=== PATIENT | female | born 1985 | race Caucasian/White ===

== ENCOUNTER 2020-12-31 09:26 | Day surgery (SDC) | payer BC ==
[2020-12-30 16:40] LABS: BLOOD UREA NITROGEN,BUN 19 mg/dL (7.0-18.0); CARBON DIOXIDE,CO2 25.1 mmol/L (21.0-32.0); CHLORIDE,CL 102 mmol/L (98-107); GLUCOSE RANDOM 86 mg/dL (74-106); SODIUM,NA 137 mmol/L (136-145)
[2020-12-31] MEDS ORDERED: HYDROmorphone 1 MG/ML Syringe IVPUSH PRN (10:34)
[2020-12-31] MEDS ORDERED: Morphine 2 MG/ML SYRINGE IVPUSH PRN (10:34)
[2020-12-31] MEDS ORDERED: Metoclopramide 10 MG/2 ML SDV IVPUSH PRN (10:34)
[2020-12-31] MEDS ORDERED: Naloxone 0.4 MG/ML Syringe IVPUSH PRN (10:34)
[2020-12-31] MEDS ORDERED: Ondansetron 4 MG/2 ML SDV IVPUSH PRN ×2 (10:34→13:41)
[2020-12-31] MEDS ORDERED: Albuterol 0.083% 2.5 MG/3 ML Neb Soln NEB PRN (10:34)
[2020-12-31] MEDS ORDERED: fentaNYL 100 MCG/2 ML SDV IVPUSH PRN (10:34)
--- NOTE | 2020-12-31 10:34 | PCM.PREANE ---
Preanesthetic Assessment - Procedure Proposed Procedure: [facility] - Anesthesia/Transfusion/Family Hx Anesthesia History: Prior Anesthesia Without Reaction Family History of Anesthesia Reaction: No Transfusion History: No Prior Transfusion(s) - Review of Systems General: No Symptoms Pulmonary: No Symptoms (social smoker (a few times a year)) Cardiovascular: No Symptoms Gastrointestinal: No Symptoms Neurological: No Symptoms Other: Reports: None - Physical Assessment NPO Status Date: 12/30/20 NPO Status Time: 19:00 Vital Signs: Last Vital Signs Temp 97.2 F 12/31/20 09:54 Pulse 67 12/31/20 09:54 Resp 16 12/31/20 09:54 BP 140/92 H 12/31/20 09:54 Pulse Ox 99 12/31/20 09:54 Height: 5 ft 6 in Weight: 87.997 kg (Obese) ASA Class: 2 Mental Status: Alert & Oriented x3 Airway Class: Mallampati = 2 Dentition: Reports: Normal Dentition ROM/Head Extension: Full Lungs: Clear to Auscultation, Normal Respiratory Effort Cardiovascular: Regular Rate, Regular Rhythm - Lab Values: Laboratory Last Values WBC 7.57 K/uL (4.0-11.0) 12/30/20 16:13 RBC 4.22 M/uL (4.30-5.90) L 12/30/20 16:13 Hgb 12.7 g/dL (12.0-16.0) 12/30/20 16:13 Hct 38.6 % (36.0-46.0) 12/30/20 16:13 MCV 91.5 fL (80.0-98.0) 12/30/20 16:13 MCH 30.1 pg (27.0-32.0) 12/30/20 16:13 MCHC 32.9 g/dL (31.0-37.0) 12/30/20 16:13 RDW Std Deviation 45.7 fl (28.0-62.0) 12/30/20 16:13 RDW Coeff of Elizabet 14 % (11.0-15.0) 12/30/20 16:13 Plt Count 280 K/uL (150-400) 12/30/20 16:13 MPV 10.60 fL (7.40-12.00) 12/30/20 16:13 Nucleated RBC % 0.0 /100WBC 12/30/20 16:13 Nucleated RBCs # 0 K/uL 12/30/20 16:13 Sodium 137 mmol/L (136-145) 12/30/20 16:13 Potassium 4.0 mmol/L (3.5-5.1) 12/30/20 16:13 Chloride 102 mmol/L (98-107) 12/30/20 16:13 Carbon Dioxide 25.1 mmol/L (21.0-32.0) 12/30/20 16:13 BUN 19 mg/dL (7.0-18.0) H 12/30/20 16:13 Creatinine 0.6 mg/dL (0.6-1.0) 12/30/20 16:13 Est Cr Clr Drug Dosing 121.35 mL/min 12/30/20 16:13 Estimated GFR (MDRD) > 60.0 ml/min 12/30/20 16:13 Glucose 86 mg/dL (74-106) 12/30/20 16:13 Calcium 8.8 mg/dL (8.5-10.1) 12/30/20 16:13 HCG, Qual NEGATIVE (NEG) 12/30/20 16:13 Blood Type A POSITIVE 12/30/20 16:13 Antibody Screen NEGATIVE 12/30/20 16:13 - Allergies Allergies/Adverse Reactions: Allergies Allergy/AdvReac Type Severity Reaction Status Date / Time No Known Allergies Allergy Verified 12/31/20 09:58 - Acknowledgements Anesthesia Type Planned: General Anesthesia Pt an Appropriate Candidate for the Planned Anesthesia: Yes Alternatives and Risks of Anesthesia Discussed w Pt/Guardian: Yes Pt/Guardian Understands and Agrees with Anesthesia Plan: Yes PreAnesthesia Questionnaire HEENT History: Reports: None Cardiovascular History: Reports: Other (See Below) Other Cardiovascular History: murmur in the past, HTN after first child was born, no problems since Respiratory History: Reports: None Gastrointestinal History: Reports: None Genitourinary History: Reports: None HOUSEPERSON History: Reports: Musculoskeletal History: Reports: Fracture Other Musculoskeletal History: hx enrique ankle fx's Neurological History: Reports: None Psychiatric History: Reports: None Endocrine/Metabolic History: Reports: Diabetes, Gestational, Obesity/BMI 30+ Hematologic History: Reports: None Immunologic History: Reports: None Oncologic (Cancer) History: Reports: None Dermatologic History: Reports: None - Infectious Disease History Infectious Disease History: Reports: Chicken Pox - Past Surgical History Head Surgeries/Procedures: Reports: None HEENT Surgical History: Reports: None Cardiovascular Surgical History: Reports: None Respiratory Surgical History: Reports: None GI Surgical History: Reports: None Female Surgical History: Reports: Other (See Below) Other Female Surgeries/Procedures: laparoscopy for ovarian cyst Endocrine Surgical History: Reports: None Neurological Surgical History: Reports: None Musculoskeletal Surgical History: Reports: Other (See Below) Other Musculoskeletal Surgeries/Procedures:: right knee surgery, left foot surgery for removal of bone chip Oncologic Surgical History: Reports: None Dermatological Surgical History: Reports: None - SUBSTANCE USE Tobacco Use Status *Q: Former Tobacco User Tobacco Use Within Last Twelve Months: No - HOME MEDS Home Medications: Home Meds Multivitamin 1 tab PO DAILY 12/26/20 [History]
[2020-12-31] MEDS ORDERED: Bupivacaine 0.5% 30 ML SDV ONE (11:02)
[2020-12-31] MEDS ORDERED: Methylene Blue 50 MG/10 ML Ampule ONE (11:56)
[2020-12-31] MEDS ORDERED: fentaNYL 250 MCG/5 ML SDV ONE ×2 (12:12→12:44)
[2020-12-31] MEDS ORDERED: fentaNYL 100 MCG/2 ML SDV ONE (12:42)
[2020-12-31] MEDS ORDERED: Propofol 200 MG/20 ML SDV ONE (12:44)
[2020-12-31] MEDS ORDERED: Ondansetron 4 MG/2 ML SDV ONE (12:45)
[2020-12-31] MEDS ORDERED: Rocuronium Bromide 50 MG/5 ML Syringe ONE (12:45)
[2020-12-31] MEDS ORDERED: Dexamethasone 4 MG/ML 5 ML MDV ONE (12:45)
[2020-12-31] MEDS ORDERED: Fluorescein 5 ML Vial ONE (13:06)
[2020-12-31] MEDS ORDERED: Promethazine 25 MG/ML SDV IM PRN (13:41)
[2020-12-31] MEDS ORDERED: Acetaminophen/oxyCODONE 325-5 MG Tab PO PRN (13:41)
[2020-12-31] MEDS ORDERED: Morphine 4 MG/ML Syringe IVPUSH PRN (13:41)
[2020-12-31] MEDS ORDERED: Ketorolac 30 MG/ML SDV IVPUSH ONE (13:41)
[2020-12-31] MEDS ORDERED: HYDROmorphone 2 MG/ML Syringe ONE (13:47)
[2020-12-31] MEDS ORDERED: Sugammadex Sodium 200 MG/2 ML VIAL ONE (13:56)
--- NOTE | 2020-12-31 14:05 | PCM.OPNOTE ---
- General Post-Op/Procedure Note Date of Surgery/Procedure: 12/31/20 Operative Procedure(s): Laparoscopic assisted vaginal hysterectomy with cystometry Findings: Uterus with multiple, small, subserosal fibroids present. Normal appearing ovaries and fallopian tubes. Stage 2 endometriosis near uterosacral ligament. Bilateral ureters demonstrated good flow on cystometry Pre Op Diagnosis: Menorrhagia, fibroid Post-Op Diagnosis: Same with stage 2 endometriosis Anesthesia Technique: General ET Tube Primary Surgeon: Bindu Gao Secondary Surgeon: Estiven Mark Anesthesia Provider: Mj Vazquez Newspaper Copy Editor: Zofia Vargas Pathology: Uterus, cervix, bilateral fallopian tubes Fluid Replacement, Intraop: 2,800 Output, Urine Amount: 300 EBL in mLs: 400 Complications: None Condition: Stable Free Text/Narrative:: 2g IV Ancef received
--- NOTE | 2020-12-31 14:07 | PCM.POSTAN ---
POST ANESTHESIA ASSESSMENT - MENTAL STATUS Mental Status: Oriented - VITAL SIGNS Vital Signs: Last Vital Signs Temp 97.5 F 12/31/20 13:49 Pulse 50 L 12/31/20 13:59 Resp 10 L 12/31/20 13:59 BP 108/72 12/31/20 13:59 Pulse Ox 100 12/31/20 13:59 - RESPIRATORY Respiratory Status: Respiratory Rate WNL, Airway Patent, O2 Saturation Stable - CARDIOVASCULAR CV Status: Pulse Rate WNL, Blood Pressure Stable - GASTROINTESTINAL GI Status: No Symptoms - PAIN Pain Score: 5 - POST OP HYDRATION Hydration Status: Adequate & Stable
--- NOTE | 2020-12-31 14:19 | PCM48HPAN ---
Post Anesthesia Note - EVALUATION WITHIN 48HRS OF ANESTHETIC Vital Signs in Normal Range: Yes Patient Participated in Evaluation: Yes Respiratory Function Stable: Yes Airway Patent: Yes Cardiovascular Function Stable: Yes Hydration Status Stable: Yes Pain Control Satisfactory: Yes Nausea and Vomiting Control Satisfactory: Yes Mental Status Recovered: Yes Vital Signs: Last Vital Signs Temp 97.5 F 12/31/20 13:49 Pulse 53 L 12/31/20 14:15 Resp 14 12/31/20 14:15 BP 100/59 L 12/31/20 14:15 Pulse Ox 99 12/31/20 14:15 - COMMENTS/OBSERVATIONS Free Text/Narrative:: Pt doing well post-op. VSS. No apparent anesthetic complications. Dr. Pipo Robert
[2020-12-31] MEDS: Ketorolac 30 MG/ML SDV IVPUSH SCH ×2 (16:04→20:02)
--- NOTE | 2020-12-31 19:52 | OR ---
SURGEON: Bindu Gao M.D. DATE OF PROCEDURE: 12/31/2020 PREOPERATIVE DIAGNOSES: Menorrhagia, uterine fibroid. POSTOPERATIVE DIAGNOSES: Menorrhagia, uterine fibroid, and stage II endometriosis. PROCEDURE: Laparoscopically assisted vaginal hysterectomy with bilateral salpingectomy and cystoscopy. PRIMARY SURGEON: Bindu Gao MD MATRIX SUPERVISOR: Estiven Mark MD. SECOND MATRIX SUPERVISOR: Zofia Vargas, MS-4. ANESTHESIA: General endotracheal. FLUIDS: 2800 mL of crystalloid. ESTIMATED BLOOD LOSS: 400 mL. FINDINGS: The uterus was enlarged to 12 week size. There was an anterior transmural fibroid. There was endometriotic implants on the right uterosacral ligament and inflammatory changes in the posterior cul-de-sac consistent with endometriosis. Otherwise, the tubes and ovaries appeared normal. Vaginally, there was a second- degree rectocele. On the cystoscopy, there was no evidence of any bladder trauma. There was copious flow of bright green urine after fluorescein had been given from bilateral ureteral orifices. COMPLICATIONS: None known. DISPOSITION: Stable to Recovery. PATHOLOGY: Uterus and bilateral fallopian tubes. BRIEF HISTORY: This is a 35-year-old female. She presents with extremely heavy, prolonged periods, sometimes bleeding almost a month at a time. Ultrasound revealed an enlarged fibroid uterus. A saline-enhanced ultrasound showed a transmural fibroid with partial submucosal component on the anterior lower uterine segment. She did have an endometrial biopsy, which was benign. We did discuss the option of medication versus IUD ablation which would be likely to fail in the presence of a submucosal fibroid, which I did not feel is amenable to hysteroscopic excision versus hysterectomy. She desires definitive therapy with a hysterectomy with risks discussed including bleeding; infection; injury to bowel, bladder, blood vessels, ureters, or other organs; risk of thromboembolic event; and risk of anesthesia. Additionally, she understands that she will not be able to become once her uterus is removed, and she states that her family is complete. Understanding all these risks and issues, she desires to proceed with a laparoscopically assisted vaginal hysterectomy with bilateral salpingectomy for risk reduction for ovarian cancer and cystoscopy. DESCRIPTION OF PROCEDURE: With the patient in the dorsal lithotomy position, under adequate general endotracheal anesthesia, the abdomen was prepped with chlorhexidine. The perineum and vagina were prepped with Betadine, and draped in the usual fashion for laparoscopically assisted vaginal surgery. The Kaplan catheter had been placed and backfilled with 30 mL of dilute indigo carmine. After an appropriate time-out was held and the patient's SCDs were initiated and she had received 2 g of Ancef IV, a bimanual examination revealed an anteverted 12-week size uterus, fairly mobile. A speculum was placed into the vagina, and the cervix was grasped with an Allis clamp. The ZUMI uterine manipulator was placed and sounded to 12 cm. The speculum was removed. Candy Dipper Hand's gloves were changed out. Attention was then turned abdominally where 2 mL of 0.25% Marcaine was injected inferior to the umbilicus. A 5 mm vertical incision was made with a scalpel. The anterior abdominal wall was elevated. Veress needle was inserted. CO2 opening pressure was 5 mmHg. CO2 was insufflated to develop an adequate pneumoperitoneum of 15 mmHg; and two additional port sites were placed 2 cm medial and cephalad from the anterior superior iliac spine on the right and left under direct visualization without any difficulty. The uterus was elevated. The patient was placed in steep Trendelenburg position. The ureters were identified. They were deep within the pelvis. The endometriosis was noted and photo was taken. The tips of the tubes were grasped. The ligament between the tube and the ovary were incised, and the LigaSure was used to complete the ligation across the mesosalpinx to the uterine cornua. This occurred on the right and the left. The utero-ovarian ligament was transected on the right and the left using the LigaSure as well as the round ligament. The anterior- posterior leaf of the broad ligaments were then opened and hydrodissection was performed beneath the anterior leaf of the broad ligament, developing a good field of dissection. The peritoneum was then entered using the LigaSure anteriorly and crossing over the anterior uterus adjacent to the uterus and fibroid well away from the bladder. With this, an adequate bladder flap was developed. Once this was completed, attention was then turned vaginally where the ZUMI uterine manipulator was removed, and the weighted speculum was placed as well as the sidewall retractors. The cervix was grasped with a Melisa tenaculum. The cervix was circumscribed using electrocautery, and using sharp dissection, the posterior cul-de-sac was entered. The anterior cul-de-sac was also entered with blunt dissection as the bladder flap had already been dissected. The right angle retractor was placed anteriorly. The Abisai-Auvard speculum was placed posteriorly. The uterosacral ligaments were cross clamped, cut, and ligated using Presley ligature of 2-0 Polysorb. An additional pedicle was taken on the right and the left incorporating the lower portion of the uterine vessels; and with this, the uterus and bilateral fallopian tubes were delivered vaginally. The retained uterosacral ligaments were ligated to the vaginal apices bilaterally. The bowel was packed and the pelvis was inspected, and there was no discrete areas of bleeding identified. Therefore, the packing was removed. The anterior vaginal cuff was grasped with an Allis clamp and the vaginal cuff was closed with a running lock suture of 0 Polysorb. This being completed, IV fluorescein and Lasix had been given. Cystoscopy was performed using sterile water as a distending medium. There was no evidence of any trauma to the bladder mucosa. Bilateral ureteral orifices were identified, and there was copious flow of bright green urine bilaterally. This being completed, the bladder was drained. A Kaplan catheter was replaced. Speculum was placed in the vagina to confirm hemostasis. There was no areas of bleeding on the vagina. Therefore, transfer operator's gloves were again changed and attention was turned abdominally, where the abdomen was re-insufflated and the patient was placed in Trendelenburg position. The pelvis was copiously irrigated. There were no areas of bleeding identified. Elias was placed across the vaginal cuff, and the abdomen was desufflated. The port sites were removed. The skin was closed with subcuticular suture of 4-0 Monocryl. Final sponge, needle, and instrument counts were reported as correct. There were no known complications. The patient was transferred to Recovery in good condition. FRANSISCA / BAY /[id number]
[2020-12-31] MEDS: Acetaminophen/oxyCODONE 325-5 MG Tab PO PRN (23:30)
[2021-01-01] MEDS: Ketorolac 30 MG/ML SDV IVPUSH SCH ×2 (02:36→08:56)
[2021-01-01] MEDS: Acetaminophen/oxyCODONE 325-5 MG Tab PO PRN (05:49)
[2021-01-01 06:06] LABS: BLOOD UREA NITROGEN,BUN 10 mg/dL (7.0-18.0); CARBON DIOXIDE,CO2 26.9 mmol/L (21.0-32.0); CHLORIDE,CL 104 mmol/L (98-107); GLUCOSE RANDOM 102 mg/dL (74-106); POTASSIUM,K 4.2 mmol/L (3.5-5.1); SODIUM,NA 138 mmol/L (136-145)
--- NOTE | 2021-01-01 07:25 | PCM.SURGPN ---
- General Info Date of Service: 01/01/21 Date of Surgery/Procedure: 12/31/20 POD#: 1 Post-Op Diagnosis: Menorrhagia, uterine fibroids, stage 2 endometriosis Functional Status: Reports: Pain Controlled - Review of Systems Pulmonary: Reports: No Symptoms Cardiovascular: Reports: No Symptoms Gastrointestinal: Reports: Flatus Genitourinary: Reports: No Symptoms Musculoskeletal: Reports: No Symptoms Skin: Reports: No Symptoms - Patient Data Vitals - Most Recent: Last Vital Signs Temp 96.8 F L 01/01/21 05:48 Pulse 62 01/01/21 05:48 Resp 16 01/01/21 05:48 BP 104/68 01/01/21 05:48 Pulse Ox 95 01/01/21 05:48 Weight - Most Recent: 194 lb (Obese) I&O - Last 24 Hours: Intake & Output 12/31/20 01/01/21 01/01/21 22:59 06:59 14:59 Intake Total 350 1000 Output Total 425 1350 Balance -75 -350 Lab Results Last 24 Hrs: Laboratory Results - last 24 hr 01/01/21 01/01/21 Range/Units 05:10 05:10 WBC 13.17 H (4.0-11.0) K/uL RBC 3.90 L (4.30-5.90) M/uL Hgb 11.6 L (12.0-16.0) g/dL Hct 35.4 L (36.0-46.0) % MCV 90.8 (80.0-98.0) fL MCH 29.7 (27.0-32.0) pg MCHC 32.8 (31.0-37.0) g/dL RDW Std Deviation 44.2 (28.0-62.0) fl RDW Coeff of Elizabet 13 (11.0-15.0) % Plt Count 282 (150-400) K/uL MPV 10.40 (7.40-12.00) fL Neut % (Auto) 79.9 (48.0-80.0) % Lymph % (Auto) 14.2 L (16.0-40.0) % [place] % (Auto) 5.8 (0.0-15.0) % Eos % (Auto) 0.1 (0.0-7.0) % Baso % (Auto) 0.0 (0.0-1.5) % Neut # (Auto) 10.5 H (1.4-5.7) K/uL Lymph # (Auto) 1.9 (0.6-2.4) K/uL [place] # (Auto) 0.8 (0.0-0.8) K/uL Eos # (Auto) 0.0 (0.0-0.7) K/uL Baso # (Auto) 0.0 (0.0-0.1) K/uL Nucleated RBC % 0.0 /100WBC Nucleated RBCs # 0 K/uL Sodium 138 (136-145) mmol/L Potassium 4.2 (3.5-5.1) mmol/L Chloride 104 (98-107) mmol/L Carbon Dioxide 26.9 (21.0-32.0) mmol/L BUN 10 (7.0-18.0) mg/dL Creatinine 0.7 (0.6-1.0) mg/dL Est Cr Clr Drug Dosing 104.01 mL/min Estimated GFR (MDRD) > 60.0 ml/min Glucose 102 (74-106) mg/dL Calcium 8.6 (8.5-10.1) mg/dL Med Orders - Current: Current Medications Ketorolac Tromethamine (Ketorolac 30 Mg/Ml Sdv) 30 mg IVPUSH Q6H LIANA Stop: 01/05/21 13:41 Last Admin: 01/01/21 02:36 Dose: 30 mg Documented by: Morphine Sulfate (Morphine 4 Mg/Ml Syringe) 4 mg IVPUSH Q2H PRN PRN Reason: Pain (severe 7-10) Last Admin: 12/31/20 15:08 Dose: 4 mg Documented by: Ondansetron HCl (Ondansetron 4 Mg/2 Ml Sdv) 4 mg IVPUSH Q6H PRN PRN Reason: Nausea/Vomiting Oxycodone/Acetaminophen (Acetaminophen/Oxycodone 325-5 Mg Tab) 1 tab PO Q4H PRN PRN Reason: Pain (moderate 4-6) Last Admin: 12/31/20 17:04 Dose: 1 tab Documented by: Oxycodone/Acetaminophen (Acetaminophen/Oxycodone 325-5 Mg Tab) 2 tab PO Q4H PRN PRN Reason: Pain (moderate 4-6) Last Admin: 01/01/21 05:49 Dose: 2 tab Documented by: Promethazine HCl (Promethazine 25 Mg/Ml Sdv) 25 mg IM Q6H PRN PRN Reason: Nausea/Vomiting Discontinued Medications Albuterol (Albuterol 0.083% 2.5 Mg/3 Ml Neb Soln) 2.5 mg NEB ONETIME PRN PRN Reason: Wheezing Bupivacaine HCl (Bupivacaine 0.5% 30 Ml Sdv) Confirm Administered Dose 30 ml .ROUTE .STK-MED ONE Stop: 12/31/20 11:03 Dexamethasone (Dexamethasone 4 Mg/Ml 5 Ml Mdv) Confirm Administered Dose 20 mg . ROUTE .STK-MED ONE Stop: 12/31/20 12:46 Droperidol (Droperidol 5 Mg/2 Ml Sdv) 0.625 mg IVPUSH ONETIME PRN PRN Reason: Nausea/Vomiting Fentanyl (Fentanyl 100 Mcg/2 Ml Sdv) 50 mcg IVPUSH Q5M PRN PRN Reason: Pain (mild 1-3) Fentanyl (Fentanyl 250 Mcg/5 Ml Sdv) Confirm Administered Dose 250 mcg .ROUTE .STK-MED ONE Stop: 12/31/20 12:13 Fentanyl (Fentanyl 100 Mcg/2 Ml Sdv) Confirm Administered Dose 100 mcg .ROUTE .STK-MED ONE Stop: 12/31/20 12:43 Fentanyl (Fentanyl 250 Mcg/5 Ml Sdv) Confirm Administered Dose 250 mcg .ROUTE .STK-MED ONE Stop: 12/31/20 12:45 Fluorescein Sodium (Fluorescein 5 Ml Vial) Confirm Administered Dose 5 ml .ROUTE .STK-MED ONE Stop: 12/31/20 13:07 Hydromorphone HCl (Hydromorphone 1 Mg/Ml Syringe) 1 mg IVPUSH Q10M PRN PRN Reason: Pain (moderate 4-6) Last Admin: 12/31/20 14:05 Dose: 1 mg Documented by: Hydromorphone HCl (Hydromorphone 2 Mg/Ml Syringe) Confirm Administered Dose 2 mg .ROUTE .STK-MED ONE Stop: 12/31/20 13:48 Ketorolac Tromethamine (Ketorolac 30 Mg/Ml Sdv) 30 mg IVPUSH ONETIME ONE Stop: 12/31/20 13:42 Last Admin: 12/31/20 14:06 Dose: 30 mg Documented by: Methylene Blue (Methylene Blue 50 Mg/10 Ml Ampule) Confirm Administered Dose 50 mg .ROUTE .STK-MED ONE Stop: 12/31/20 11:57 Metoclopramide HCl (Metoclopramide 10 Mg/2 Ml Sdv) 10 mg IVPUSH ONETIME PRN PRN Reason: Nausea/Vomiting Morphine Sulfate (Morphine 2 Mg/Ml Syringe) 2 mg IVPUSH Q10M PRN PRN Reason: Pain (severe 7-10) Naloxone HCl (Naloxone 0.4 Mg/Ml Syringe) 0.1 mg IVPUSH ASDIRECTED PRN PRN Reason: Respiratory Depression Ondansetron HCl (Ondansetron 4 Mg/2 Ml Sdv) 4 mg IVPUSH ONETIME PRN PRN Reason: Nausea/Vomiting Ondansetron HCl (Ondansetron 4 Mg/2 Ml Sdv) Confirm Administered Dose 4 mg .ROUTE .STK-MED ONE Stop: 12/31/20 12:46 Propofol (Propofol 200 Mg/20 Ml Sdv) Confirm Administered Dose 200 mg .ROUTE .STK-MED ONE Stop: 12/31/20 12:45 Rocuronium [place] (Rocuronium [place] 50 Mg/5 Ml Syringe) Confirm Administered Dose 100 mg .ROUTE .STK-MED ONE Stop: 12/31/20 12:46 Sugammadex Sodium (Sugammadex Sodium 200 Mg/2 Ml Vial) Confirm Administered Dose 200 mg .ROUTE .STK-MED ONE Stop: 12/31/20 13:57 - Exam Wound/Incisions: Healing Well General: Alert, Oriented HEENT: Pupils Equal Neck: Supple Lungs: Clear to Auscultation, Normal Respiratory Effort Cardiovascular: Regular Rate, Regular Rhythm GI/Abdominal Exam: Normal Bowel Sounds (Appropriately tender) Extremities: Normal Inspection (SCDs in place), Non-Tender, No Pedal Edema Skin: Warm, Dry, Intact Psy/Mental Status: Alert, Normal Affect, Normal Mood Sepsis Event Note - Evaluation Sepsis Screening Result: No Definite Risk - Focused Exam Vital Signs: Vital Signs Temp Pulse Resp BP Pulse Ox 01/01/21 05:48 96.8 F L 62 16 104/68 95 01/01/21 00:00 98 F 71 18 110/68 95 12/31/20 20:13 97.1 F 75 18 115/66 94 L - Problem List Review Problem List Initiated/Reviewed/Updated: Yes - My Orders Last 24 Hours: Active Orders 24 hr Category Date Time Status Patient Status [ADT] Routine ADT 12/31/20 13:41 Active Antiembolic Devices [RC] PER UNIT ROUTINE Care 12/31/20 13:42 Active Intake and Output [RC] PER UNIT ROUTINE Care 12/31/20 13:43 Active Notify Provider Intake and Out [RC] ASDIRECTED Care 12/31/20 13:41 Active Notify Provider Vital Signs [RC] ASDIRECTED Care 12/31/20 10:34 Active Notify Provider Vital Signs [RC] ASDIRECTED Care 12/31/20 13:41 Active Overnight Pulse Oximetry [RC] Click to Edit Care 12/31/20 10:34 Active Oxygen Therapy [RC] ASDIRECTED Care 12/31/20 13:41 Active Oxygen Therapy [RC] PRN Care 12/31/20 10:34 Active RT Aerosol Therapy [RC] ASDIRECTED Care 12/31/20 10:34 Active RT Aerosol Therapy [RC] ASDIRECTED Care 12/31/20 10:34 Active RT BiPAP/CPAP [RC] ASDIRECTED Care 12/31/20 10:34 Active RT Incentive Spirometry [RC] Q2HWA Care 12/31/20 13:41 Active Up With Assistance [RC] PER UNIT ROUTINE Care 12/31/20 13:41 Active Up ad Vero [RC] PER UNIT ROUTINE Care 12/31/20 13:41 Active Urinary Catheter Removal [RC] Per Unit Routine Care 12/31/20 13:41 Active Vital Signs [RC] PER UNIT ROUTINE Care 12/31/20 13:41 Active Vital Signs [RC] Q5M Care 12/31/20 10:34 Active Regular Diet [DIET] Diet 12/31/20 Dinner Active Acetaminophen/oxyCODONE [Percocet 325-5 MG] Med 12/31/20 13:41 Active 1 tab PO Q4H PRN Acetaminophen/oxyCODONE [Percocet 325-5 MG] Med 12/31/20 13:41 Active 2 tab PO Q4H PRN Ketorolac [Toradol] Med 12/31/20 13:45 Active 30 mg IVPUSH Q6H Morphine Med 12/31/20 13:41 Active 4 mg IVPUSH Q2H PRN Ondansetron [Zofran] Med 12/31/20 13:41 Active 4 mg IVPUSH Q6H PRN Promethazine [Phenergan] Med 12/31/20 13:41 Active 25 mg IM Q6H PRN Peripheral IV Discontinue [OM.PC] Routine Oth 12/31/20 13:41 Ordered Pulse Oximetry Continuous Monitoring [OM.PC] Routine Oth 12/31/20 10:34 Ordered Sequential Compression Device [OM.PC] Per Unit Routine Oth 12/31/20 13:41 Ordered Resuscitation Status Routine Resus Stat 12/31/20 13:41 Ordered Medication Orders Ketorolac Tromethamine (Ketorolac 30 Mg/Ml Sdv) 30 mg IVPUSH Q6H LIANA Stop: 01/05/21 13:41 Last Admin: 01/01/21 02:36 Dose: 30 mg Documented by: Admin: 12/31/20 20:02 Dose: 30 mg Documented by: Admin: 12/31/20 16:04 Dose: Not Given Documented by: ELSA Morphine Sulfate (Morphine 4 Mg/Ml Syringe) 4 mg IVPUSH Q2H PRN PRN Reason: Pain (severe 7-10) Last Admin: 12/31/20 15:08 Dose: 4 mg Documented by: ELSA Ondansetron HCl (Ondansetron 4 Mg/2 Ml Sdv) 4 mg IVPUSH Q6H PRN PRN Reason: Nausea/Vomiting Oxycodone/Acetaminophen (Acetaminophen/Oxycodone 325-5 Mg Tab) 1 tab PO Q4H PRN PRN Reason: Pain (moderate 4-6) Last Admin: 12/31/20 17:04 Dose: 1 tab Documented by: BARBARA Oxycodone/Acetaminophen (Acetaminophen/Oxycodone 325-5 Mg Tab) 2 tab PO Q4H PRN PRN Reason: Pain (moderate 4-6) Last Admin: 01/01/21 05:49 Dose: 2 tab Documented by: Admin: 12/31/20 23:30 Dose: 2 tab Documented by: ADALBERTO Promethazine HCl (Promethazine 25 Mg/Ml Sdv) 25 mg IM Q6H PRN PRN Reason: Nausea/Vomiting - Assessment Assessment (Free Text/Narrative):: Pt is a 35yo F s/p LAVH with cystometry POD#1. Healing well. - Plan Plan (Free Text/Narrative):: Hgb 11.6 and Hct 35.4 this AM Pain controlled on current pain regimen Ambulating without difficulty Kaplan removed this AM, has not yet urinated No BMs, has had flatus Diet as tolerated Dispo: Plan for discharge today
== END 2021-01-01 09:45 | disposition home or self-care (01) ==
LOC: MW.SDS 09:26 → MW.MS 14:33 → MW.SDS 01-01 09:45
PROVIDERS: ATTEND Obstetrics & Gynecology
DX: D25.1 Intramural leiomyoma of uterus (principal); N80.0 Endometriosis of uterus; N81.2 Incomplete uterovaginal prolapse; E66.9 Obesity, unspecified; Z68.31 Body mass index [BMI] 31.0-31.9, adult
CPT/HCPCS: 36415; 58552; 80048; 84703; 85025; 85027; 86850; 86900; 86901; 88309; A9270; J1100; J1170; J1885; J2270; J2704; J3010; J3490; J7030; J2405

== ENCOUNTER 2022-01-21 17:20 | Emergency (ER) | payer BC ==
[2022-01-21] MEDS ORDERED: Acetaminophen 325 MG Tab PO ONE (18:02)
[2022-01-21] MEDS ORDERED: Lidocaine/Epineph/Tetracaine 3 ML Syringe TOP ONE (18:02)
[2022-01-21] MEDS ORDERED: Diphtheria,Pertussis(Acell),Tetanus Vaccine 0.5 ML Syringe IM ONE (18:02)
== END 2022-01-21 19:44 | disposition home or self-care (01) ==
LOC: MW.ED 17:20
DX: S06.0X0A Concussion without loss of consciousness, initial encounter (principal); S01.01XA Laceration without foreign body of scalp, initial encounter; E66.9 Obesity, unspecified; Z68.31 Body mass index [BMI] 31.0-31.9, adult; Z23 Encounter for immunization; Z79.899 Other long term (current) drug therapy; W22.8XXA Striking against or struck by other objects, initial encounter
CPT/HCPCS: 12002; 70450; 90471; 90715; 99283; A9270

== ENCOUNTER 2024-02-16 20:11 | Emergency (ER) | payer BC | END 2024-02-16 22:10 | disposition home or self-care (01) | LOC: MW.ED 20:11 | DX: S61.300A Unspecified open wound of right index finger with damage to nail, initial encounter (principal); E11.9 Type 2 diabetes mellitus without complications; E66.9 Obesity, unspecified; W26.0XXA Contact with knife, initial encounter; Z75.8 Other problems related to medical facilities and other health care | CPT/HCPCS: 73140-26-F1; 73140-F1; 99283 ==